=== PATIENT | male | born 1955 | race Caucasian/White ===

== ENCOUNTER 2021-07-15 09:54 | Emergency (ER) | payer BC ==
[~2021-07-15] VITALS: Ht 182.9 cm; Wt 106.6 kg
== END 2021-07-15 13:52 | disposition home or self-care (01) ==
LOC: ER1 09:54
DX: Z23 Encounter for immunization (principal); U07.1 COVID-19
CPT/HCPCS: 99283; M0243

== ENCOUNTER → 2022-03-29 | Outpatient (CLI) | payer BC | LOC: EXRD 15:37 | DX: R06.02 Shortness of breath (principal) | CPT/HCPCS: 71046 ==

== ENCOUNTER → 2022-05-05 | Outpatient (CLI) | payer BC | LOC: HEART 5 04-19 09:00 → ECHO 12:15 | DX: R06.02 Shortness of breath (principal); R53.83 Other fatigue; R68.89 Other general symptoms and signs | CPT/HCPCS: ECHO; 78452; 93017; 93306; A9502 ==